=== PATIENT | female | born 2000 | race Hispanic/Latino ===

== ENCOUNTER 2021-11-29 04:39 | Emergency (ER) | payer MEDICAID ==
[~2021-11-29] VITALS: Ht 154.9 cm; Wt 62.1 kg
[~2021-11-29 04:39] MED LIST: ESCI10TA PO; IBUP-2070 PO; NORE-122 PO; NORT10CA2 PO
[2021-11-29 05:20] LABS: BASOPHILS % (AUTO) 0.3 % (0.0-5.0); EOSINOPHILS % (AUTO) 0.3 % (0.0-8.0); HEMATOCRIT 41.5 % (36-48); LYMPHOCYTES % (AUTO) 17.4 % (21.0-51.0); MEAN CORPUSCULAR HEMOGLOBIN 29.6 pg (27.0-33.0); MEAN CORPUSCULAR VOLUME 87.2 fL (80-100); MONOCYTES % (AUTO) 6.5 % (3.0-13.0); PLATELET COUNT (AUTO) 243 K/uL (130-400); RED BLOOD CELL COUNT(AUTO) 4.76 MIL/uL (4.00-5.50); RED CELL DISTRIBUTION WIDTH 12.9 % (11.0-15.5); WHITE BLOOD COUNT (AUTO) 8.6 K/uL (4.8-10.8)
[2021-11-29 05:27] LABS: CREATININE 0.7 mg/dL (0.5-1.5); POTASSIUM 3.5 mmol/L (3.5-5.1)
[2021-11-29] MEDS ORDERED: ONDANSETRON 4MG INJ ONE (05:28)
[2021-11-29] MEDS ORDERED: ONDANSETRON 4MG INJ IVP ONE (05:30)
[2021-11-29] MEDS ORDERED: KETOROLAC 30MG VIAL (30MG/ML) IVP ONE (05:30)
[2021-11-29 05:38] LABS: ALBUMIN 3.5 g/dL (3.5-5.0); BILIRUBIN,TOTAL 0.5 mg/dL (0.2-1.0); TOTAL PROTEIN, SERUM 6.8 g/dL (6.0-8.3)
[2021-11-29 06:00] LABS: APPEARANCE,URINE Clear (CLEAR); BILIRUBIN,URINE Negative (NEGATIVE); COLOR,URINE Yellow (YELLOW); GLUCOSE, URINE (UA) Negative (NEGATIVE); KETONES,URINE Trace mg/dL (NEGATIVE); LEUKOCYTE ESTERASE ,URINE Negative (NEGATIVE); NITRATE,URINE Negative (NEGATIVE); OCCULT BLOOD,URINE Negative (NEGATIVE); PROTEIN,URINE Trace mg/dL (NEGATIVE)
[2021-11-29] MEDS ORDERED: MORPHINE 4 MG SYG ONE (06:11)
[2021-11-29 06:15] LABS: RBC,URINE 0-1 /HPF (0-1)
[2021-11-29 06:16] LABS: BACTERIA,URINE None Seen /HPF (None Seen); CALCIUM OXALATE CRYSTALS,UR Moderate /LPF (None Seen); MUCUS,URINE Few LPF (None Seen); SQUAMOUS EPITHELIAL CELL,UR Few /HPF (0-2)
[2021-11-29 06:17] LABS: AMORPHOUS SEDIMENT,UR Few /LPF (None Seen)
[2021-11-29] MEDS: MORPHINE 4 MG SYG IVP SCH ×3 (06:19→09:41)
[2021-11-29] MEDS ORDERED: 0.9%NACL 1000ML 1,000 ML IV ONE (06:29)
[2021-11-29] MEDS: 0.9%NACL 1000ML 1,000 ML IV SCH ×2 (06:45→09:40)
[2021-11-29] MEDS ORDERED: ACETAMINOPHEN 500 MG TABLET ONE (09:48)
[2021-11-29 09:54] VITALS: BP 108/65
[2021-11-29] MEDS ORDERED: OXAP600T4 PO (09:57)
[2021-11-29] MEDS ORDERED: NAPR500T6 PO (20:59)
[2021-11-29] MEDS ORDERED: TRAM50TA2 PO (20:59)
== END 2021-11-29 10:15 | disposition home or self-care (01) ==
LOC: EDH 04:39
DX: N83.201 Unspecified ovarian cyst, right side (principal); G89.29 Other chronic pain; Z88.6 Allergy status to analgesic agent; Z79.899 Other long term (current) drug therapy; Z90.89 Acquired absence of other organs; Z90.49 Acquired absence of other specified parts of digestive tract
CPT/HCPCS: 36415; 76770; 76856; 80053; 81001; 83690; 84702; 85025; 96361; 96374; 96375; 96376; J1885; J2270; J2405; J7030; J7040

== ENCOUNTER → 2023-08-11 | Outpatient (CLI) | payer MEDICAID ==
[~2023-08-11] MED LIST changes: +CEFU500T67 PO; +CEPH500B PO; +NAPR500T6 PO; +TRAM50TA2 PO; +[UNRECOGNIZED DRUG - CODE] PO
[2023-08-11 12:15] LABS: BASOPHILS # (AUTO) 0.03 K/uL (0.00-0.20); BASOPHILS % (AUTO) 0.4 % (0.0-5.0); EOSINOPHILS # (AUTO) 0.05 K/uL (0.00-0.70); EOSINOPHILS % (AUTO) 0.6 % (0.0-8.0); HEMATOCRIT 34.1 % (36-48); IMMATURE GRANULOCYTE ABSOLUTE 0.04 K/uL (0-1); LYMPHOCYTES # (AUTO) 1.9 K/uL (1.0-4.8); LYMPHOCYTES % (AUTO) 23.6 % (21.0-51.0); MEAN CORPUSCULAR HEMOGLOBIN 30.5 pg (27.0-33.0); MEAN CORPUSCULAR HGB CONC 34.3 g/dL (32.0-36.0); MONOCYTES # (AUTO) 0.4 K/uL (0.1-1.0); NEUTROPHILS # (AUTO) 5.6 K/uL (1.8-7.7); NEUTROPHILS % (AUTO) 69.9 % (40.0-77.0); PLATELET COUNT (AUTO) 200 K/uL (130-400); RED BLOOD CELL COUNT(AUTO) 3.83 MIL/uL (4.00-5.50)
[2023-08-11 12:37] LABS: BILIRUBIN,TOTAL 0.3 mg/dL (0.2-1.0); CREATININE 0.4 mg/dL (0.5-1.5); MAGNESIUM 1.6 mg/dL (1.80-2.40); POTASSIUM 3.4 mmol/L (3.5-5.1); T4 (THYROXINE) 8.1 ug/dL (4.7-13.3); THYROID STIMULATING HORMONE 1.84 uIU/mL (0.36-3.74); TOTAL PROTEIN, SERUM 6.3 g/dL (6.0-8.3)
[2023-08-11 12:38] LABS: HEMOGLOBIN A1C 4.6 % (4.0-6.0)
== END | disposition home or self-care (01) ==
LOC: LAB 10:43
PROVIDERS: ATTEND Student in an Organized Health Care Education/Training Program
DX: R00.2 Palpitations (principal)
CPT/HCPCS: 36415; 80053; 82652; 83036; 83735; 84436; 84443; 84479; 85025

== ENCOUNTER 2023-08-18 05:08 | Emergency (ER) | payer MEDICAID ==
[~2023-08-18] VITALS: Ht 154.9 cm; Wt 68.5 kg
[2023-08-18 05:34] LABS: APPEARANCE,URINE CLEAR (CLEAR); BILIRUBIN,URINE NEGATIVE (NEGATIVE); COLOR,URINE LIGHT-YELLOW (YELLOW); GLUCOSE, URINE (UA) NEGATIVE (NEGATIVE); KETONES,URINE NEGATIVE (NEGATIVE); LEUKOCYTE ESTERASE ,URINE NEGATIVE Leu/uL (NEGATIVE); NITRATE,URINE NEGATIVE (NEGATIVE); OCCULT BLOOD,URINE MODERATE (NEGATIVE); PROTEIN,URINE NEGATIVE (NEGATIVE); UROBILINOGEN,URINE 0.2 mg/dL (0.2-1.0)
[2023-08-18 05:37] LABS: ADD UA MICROSCOPIC YES
[2023-08-18 05:38] LABS: MUCUS,URINE RARE LPF (None Seen); RBC,URINE 51-100 /HPF (0-1); SQUAMOUS EPITHELIAL CELL,UR MOD /HPF (0-2)
[2023-08-18] MEDS ORDERED: MORPHINE 2 MG SYG IVP ONE (06:00)
[2023-08-18 07:54] LABS: BASOPHILS # (AUTO) 0.04 K/uL (0.00-0.20); BASOPHILS % (AUTO) 0.5 % (0.0-5.0); EOSINOPHILS # (AUTO) 0.07 K/uL (0.00-0.70); EOSINOPHILS % (AUTO) 0.8 % (0.0-8.0); HEMATOCRIT 31.7 % (36-48); IMMATURE GRANULOCYTE ABSOLUTE 0.06 K/uL (0-1); LYMPHOCYTES # (AUTO) 2.3 K/uL (1.0-4.8); LYMPHOCYTES % (AUTO) 27.6 % (21.0-51.0); MEAN CORPUSCULAR HGB CONC 35.6 g/dL (32.0-36.0); MEAN CORPUSCULAR VOLUME 86.8 fL (79-99); MONOCYTES # (AUTO) 0.5 K/uL (0.1-1.0); MONOCYTES % (AUTO) 5.4 % (3.0-13.0); NEUTROPHILS # (AUTO) 5.4 K/uL (1.8-7.7); PLATELET COUNT (AUTO) 197 K/uL (130-400); RED BLOOD CELL COUNT(AUTO) 3.65 MIL/uL (4.00-5.50); RED CELL DISTRIBUTION WIDTH 13.8 % (11.0-15.5); WHITE BLOOD COUNT (AUTO) 8.3 K/uL (4.8-10.8)
[2023-08-18 08:18] LABS: ALBUMIN 2.7 g/dL (3.5-5.0); BILIRUBIN,TOTAL 0.3 mg/dL (0.2-1.0); CREATININE 0.4 mg/dL (0.5-1.5); POTASSIUM 3.5 mmol/L (3.5-5.1); TOTAL PROTEIN, SERUM 6.2 g/dL (6.0-8.3)
[2023-08-18 09:33] VITALS: BP 100/59; PULSE 80; RESP 16; O2SAT 98
[2023-08-18] MEDS ORDERED: ONDA4TAB10 PO (09:34)
[2023-08-18] MEDS ORDERED: ACETAMINOPHEN 325 MG TAB ONE (09:56)
== END 2023-08-18 09:56 | disposition home or self-care (01) ==
LOC: EDH 05:08
DX: O26.892 Other specified pregnancy related conditions, second trimester (principal); R10.9 Unspecified abdominal pain; R31.9 Hematuria, unspecified; Z3A.18 18 weeks gestation of pregnancy; Z90.49 Acquired absence of other specified parts of digestive tract
CPT/HCPCS: 99285; 96374; 76770; 76805; 80053; 85025; 81001; 36415; 93005; J2270

== ENCOUNTER 2023-10-09 16:10 | Observation (INO) | payer MEDICAID ==
[~2023-10-09] VITALS: Ht 154.9 cm; Wt 71.7 kg
[~2023-10-09 16:10] MED LIST changes: +ONDA4TAB10 PO
[2023-10-09 16:44] VITALS: BP 128/80; PULSE 74; RESP 16
[2023-10-09 18:23] LABS: BASOPHILS # (AUTO) 0.03 K/uL (0.00-0.20); BASOPHILS % (AUTO) 0.3 % (0.0-5.0); EOSINOPHILS # (AUTO) 0.08 K/uL (0.00-0.70); EOSINOPHILS % (AUTO) 0.8 % (0.0-8.0); HEMATOCRIT 33.2 % (36-48); IMMATURE GRANULOCYTE ABSOLUTE 0.07 K/uL (0-1); LYMPHOCYTES # (AUTO) 2.2 K/uL (1.0-4.8); LYMPHOCYTES % (AUTO) 21.3 % (21.0-51.0); MEAN CORPUSCULAR HEMOGLOBIN 30.9 pg (27.0-33.0); MEAN CORPUSCULAR HGB CONC 34.9 g/dL (32.0-36.0); MEAN CORPUSCULAR VOLUME 88.3 fL (79-99); MONOCYTES # (AUTO) 0.6 K/uL (0.1-1.0); MONOCYTES % (AUTO) 5.7 % (3.0-13.0); NEUTROPHILS # (AUTO) 7.4 K/uL (1.8-7.7); NEUTROPHILS % (AUTO) 71.2 % (40.0-77.0); PLATELET COUNT (AUTO) 177 K/uL (130-400); RED BLOOD CELL COUNT(AUTO) 3.76 MIL/uL (4.00-5.50); RED CELL DISTRIBUTION WIDTH 13.8 % (11.0-15.5); WHITE BLOOD COUNT (AUTO) 10.4 K/uL (4.8-10.8)
[2023-10-09 18:38] LABS: CREATININE 0.5 mg/dL (0.5-1.5); POTASSIUM 3.3 mmol/L (3.5-5.1)
[2023-10-09 18:49] LABS: ALBUMIN 2.7 g/dL (3.5-5.0); BILIRUBIN,TOTAL 0.2 mg/dL (0.2-1.0); TOTAL PROTEIN, SERUM 6.1 g/dL (6.0-8.3)
[2023-10-09 19:32] LABS: APPEARANCE,URINE CLEAR (CLEAR); BILIRUBIN,URINE NEGATIVE (NEGATIVE); COLOR,URINE LIGHT-YELLOW (YELLOW); GLUCOSE, URINE (UA) NEGATIVE (NEGATIVE); KETONES,URINE 60 mg/dL (NEGATIVE); LEUKOCYTE ESTERASE ,URINE 75 Leu/uL (NEGATIVE); NITRATE,URINE NEGATIVE (NEGATIVE); OCCULT BLOOD,URINE NEGATIVE (NEGATIVE); PROTEIN,URINE NEGATIVE (NEGATIVE); UROBILINOGEN,URINE 0.2 mg/dL (0.2-1.0)
[2023-10-09 19:33] LABS: ADD UA MICROSCOPIC YES
[2023-10-09 19:36] LABS: BACTERIA,URINE RARE /HPF (None Seen); MUCUS,URINE RARE LPF (None Seen); SQUAMOUS EPITHELIAL CELL,UR FEW /HPF (0-2)
== END 2023-10-09 20:21 | disposition home or self-care (01) ==
LOC: EDH 16:10 → LDH 16:11 → UNDOADMOB 16:11
PROVIDERS: ADMIT Obstetrics & Gynecology; ATTEND Obstetrics & Gynecology
DX: O26.892 Other specified pregnancy related conditions, second trimester (principal); R42 Dizziness and giddiness; R11.0 Nausea; Z3A.26 26 weeks gestation of pregnancy
CPT/HCPCS: 99284; 84484; 80053; 85025; 87088; 81001; 36415; 93005; G0378

== ENCOUNTER 2023-10-19 15:55 | Observation (INO) | payer MEDICAID ==
[~2023-10-19] VITALS: Ht 154.9 cm; Wt 74.1 kg
[2023-10-19 16:55] LABS: HEMATOCRIT 32.4 % (36-48); MEAN CORPUSCULAR HEMOGLOBIN 30.5 pg (27.0-33.0); MEAN CORPUSCULAR HGB CONC 34.9 g/dL (32.0-36.0); MEAN CORPUSCULAR VOLUME 87.3 fL (79-99); RED BLOOD CELL COUNT(AUTO) 3.71 MIL/uL (4.00-5.50); RED CELL DISTRIBUTION WIDTH 13.2 % (11.0-15.5); WHITE BLOOD COUNT (AUTO) 10.4 K/uL (4.8-10.8)
[2023-10-19 17:05] LABS: CREATININE 0.5 mg/dL (0.5-1.5); MAGNESIUM 1.4 mg/dL (1.80-2.40); POTASSIUM 3.3 mmol/L (3.5-5.1)
[2023-10-19 17:36] LABS: APPEARANCE,URINE CLEAR (CLEAR); BILIRUBIN,URINE NEGATIVE (NEGATIVE); COLOR,URINE LIGHT-YELLOW (YELLOW); GLUCOSE, URINE (UA) NEGATIVE (NEGATIVE); KETONES,URINE NEGATIVE (NEGATIVE); LEUKOCYTE ESTERASE ,URINE NEGATIVE Leu/uL (NEGATIVE); NITRATE,URINE NEGATIVE (NEGATIVE); OCCULT BLOOD,URINE MODERATE (NEGATIVE); PH,URINE 6.5 (5.0-8.0); PROTEIN,URINE NEGATIVE (NEGATIVE); UROBILINOGEN,URINE 0.2 mg/dL (0.2-1.0)
[2023-10-19 17:39] LABS: ADD UA MICROSCOPIC YES
[2023-10-19 17:41] LABS: BACTERIA,URINE RARE /HPF (None Seen); MUCUS,URINE RARE LPF (None Seen); RBC,URINE >100 /HPF (0-1); SQUAMOUS EPITHELIAL CELL,UR RARE /HPF (0-2)
[2023-10-19 17:43] LABS: AMPHET/METH SCREEN,URINE NEGATIVE (NEGATIVE); BARBITURATE SCREEN, URINE NEGATIVE (NEGATIVE); BENZODIAZEPINES SCREEN,URINE NEGATIVE (NEGATIVE); CANNABINOID SCREEN,URINE NEGATIVE (NEGATIVE); COCAINE SCREEN,URINE NEGATIVE (NEGATIVE); OPIATE SCREEN,URINE NEGATIVE (NEGATIVE); PHENCYCLIDINE SCREEN,URINE NEGATIVE (NEGATIVE)
[2023-10-19 18:08] LABS: ALCOHOL, BLOOD < 3 mg/dL (0-10); THYROID STIMULATING HORMONE 1.29 uIU/mL (0.36-3.74)
[2023-10-19] MEDS: ACETAMINOPHEN 325 MG TAB PO PRN (20:38)
[2023-10-19 21:59] LABS: CREATINE KINASE, TOTAL 53 U/L (21-232)
[2023-10-19] MEDS: METOPROLOL TARTRATE 25 MG TAB PO SCH (22:02)
[2023-10-19 22:12] LABS: ALBUMIN 2.6 g/dL (3.5-5.0); BILIRUBIN,DIRECT 0.1 mg/dL (0.0-0.3); BILIRUBIN,TOTAL 0.3 mg/dL (0.2-1.0); TOTAL PROTEIN, SERUM 5.8 g/dL (6.0-8.3)
[2023-10-19] MEDS: 0.9%NACL 1000ML 1,000 ML IV ONE (22:25)
[2023-10-19] MEDS: MAGNESIUM OXIDE 400 MG TABLET PO ONE ×2 (22:25→22:26)
[2023-10-19] MEDS: POTASSIUM BICARB/CIT AC 25 MEQ TABLET.EFF PO ONE (22:25)
[2023-10-19] MEDS ORDERED: ONDANSETRON 4MG INJ IVP PRN (22:30)
[2023-10-19 22:35] VITALS: O2SAT 99
[2023-10-19 23:00] VITALS: BP_SYST 115; BP_SYST 119; BP_SYST 128; BP_DIAS 69; BP_DIAS 83; BP_DIAS 86; PULSE 111; PULSE 120; PULSE 91; RESP 19
[2023-10-19 23:11] LABS: INR <= 0.93 (0.85-1.15); PROTHROMBIN TIME 10.6 SEC (9.6-11.6)
[2023-10-19 23:12] LABS: PARTIAL THROMBOPLASTIN TIME 28.2 SEC (26.3-35.5)
[2023-10-19] MEDS ORDERED: METO25TA6 PO (23:41)
[2023-10-19] MEDS ORDERED: PNV#1CAP15 PO (23:41)
[2023-10-20] VITALS (7 sets, daily range): BP systolic 95–182; BP diastolic 39–87; PULSE 65–79; RESP 16–20; O2SAT 99–100
[2023-10-20] MEDS: 0.9%NACL 1000ML 1,000 ML IV SCH (05:26)
[2023-10-20 05:27] LABS: BASOPHILS # (AUTO) 0.05 K/uL (0.00-0.20); BASOPHILS % (AUTO) 0.5 % (0.0-5.0); EOSINOPHILS # (AUTO) 0.11 K/uL (0.00-0.70); EOSINOPHILS % (AUTO) 1.2 % (0.0-8.0); HEMATOCRIT 29.7 % (36-48); IMMATURE GRANULOCYTE ABSOLUTE 0.06 K/uL (0-1); LYMPHOCYTES # (AUTO) 3.5 K/uL (1.0-4.8); LYMPHOCYTES % (AUTO) 36.9 % (21.0-51.0); MEAN CORPUSCULAR HEMOGLOBIN 30.1 pg (27.0-33.0); MEAN CORPUSCULAR HGB CONC 35.4 g/dL (32.0-36.0); MEAN CORPUSCULAR VOLUME 85.1 fL (79-99); MONOCYTES # (AUTO) 0.6 K/uL (0.1-1.0); MONOCYTES % (AUTO) 6.4 % (3.0-13.0); NEUTROPHILS # (AUTO) 5.1 K/uL (1.8-7.7); NEUTROPHILS % (AUTO) 54.4 % (40.0-77.0); PLATELET COUNT (AUTO) 167 K/uL (130-400); RED BLOOD CELL COUNT(AUTO) 3.49 MIL/uL (4.00-5.50); RED CELL DISTRIBUTION WIDTH 13.2 % (11.0-15.5); WHITE BLOOD COUNT (AUTO) 9.4 K/uL (4.8-10.8)
[2023-10-20 05:59] LABS: ALBUMIN 2.3 g/dL (3.5-5.0); BILIRUBIN,TOTAL 0.2 mg/dL (0.2-1.0); CREATININE 0.3 mg/dL (0.5-1.5); MAGNESIUM 1.6 mg/dL (1.80-2.40); POTASSIUM 3.3 mmol/L (3.5-5.1); TOTAL PROTEIN, SERUM 5.4 g/dL (6.0-8.3)
[2023-10-20] MEDS ORDERED: PRENATAL VITAMIN RX TABLET PO SCH (09:00)
[2023-10-20] MEDS: MAGNESIUM OXIDE 400 MG TABLET PO SCH (11:39)
[2023-10-20] MEDS ORDERED: POTASSIUM CHLORIDE 20MEQ/100ML 100 ML IV PRN (12:30)
[2023-10-20] MEDS: PROPRANOLOL HCL 10 MG TAB PO SCH (13:50)
[2023-10-20] MEDS: KCL 20 MEQ ERTAB PO ONE ×3 (13:51→23:45)
[2023-10-20] MEDS: MAGNESIUM 2GM PREMIX 50ML 50 ML IV PRN (14:10)
[2023-10-20] MEDS: PRENATAL VITAMIN RX TABLET PO SCH (21:00)
[2023-10-21 04:00] VITALS: BP 107/49; PULSE 72; RESP 17
[2023-10-21] MEDS ORDERED: POTASSIUM CHLORIDE 10% ELIXIR 20 MEQ/15 ML UDCUP PO PRN (04:30)
[2023-10-21 05:09] LABS: BASOPHILS # (AUTO) 0.05 K/uL (0.00-0.20); BASOPHILS % (AUTO) 0.5 % (0.0-5.0); EOSINOPHILS # (AUTO) 0.12 K/uL (0.00-0.70); EOSINOPHILS % (AUTO) 1.3 % (0.0-8.0); HEMATOCRIT 29.9 % (36-48); IMMATURE GRANULOCYTE ABSOLUTE 0.05 K/uL (0-1); LYMPHOCYTES # (AUTO) 3.1 K/uL (1.0-4.8); LYMPHOCYTES % (AUTO) 34.5 % (21.0-51.0); MEAN CORPUSCULAR HEMOGLOBIN 30.5 pg (27.0-33.0); MEAN CORPUSCULAR HGB CONC 34.4 g/dL (32.0-36.0); MEAN CORPUSCULAR VOLUME 88.5 fL (79-99); MONOCYTES # (AUTO) 0.6 K/uL (0.1-1.0); MONOCYTES % (AUTO) 6.8 % (3.0-13.0); NEUTROPHILS # (AUTO) 5.1 K/uL (1.8-7.7); NEUTROPHILS % (AUTO) 56.4 % (40.0-77.0); PLATELET COUNT (AUTO) 150 K/uL (130-400); RED BLOOD CELL COUNT(AUTO) 3.38 MIL/uL (4.00-5.50); RED CELL DISTRIBUTION WIDTH 13.3 % (11.0-15.5); WHITE BLOOD COUNT (AUTO) 9.1 K/uL (4.8-10.8)
[2023-10-21 05:30] LABS: ALBUMIN 2.2 g/dL (3.5-5.0); BILIRUBIN,TOTAL 0.1 mg/dL (0.2-1.0); CREATININE 0.4 mg/dL (0.5-1.5); MAGNESIUM 1.7 mg/dL (1.80-2.40); TOTAL PROTEIN, SERUM 5.2 g/dL (6.0-8.3)
[2023-10-21 08:00] VITALS: BP 113/61; PULSE 71; RESP 18
[2023-10-21] MEDS ORDERED: PROP80CA2 PO (10:05)
[2023-10-21 12:00] VITALS: BP 104/61; PULSE 87; RESP 18
[2023-10-21 16:00] VITALS: BP 105/55; PULSE 82; RESP 18
[2023-10-21 17:38] VITALS: O2SAT 100
== END 2023-10-21 18:50 | disposition home or self-care (01) ==
LOC: EDH 15:55 → EDHIP 15:56 → 3CH 22:19
PROVIDERS: ADMIT Obstetrics & Gynecology; ATTEND Obstetrics & Gynecology
DX: O99.352 Diseases of the nervous system complicating pregnancy, second trimester (principal); O99.282 Endocrine, nutritional and metabolic diseases complicating pregnancy, second trimester; O99.412 Diseases of the circulatory system complicating pregnancy, second trimester; O99.322 Drug use complicating pregnancy, second trimester; O26.892 Other specified pregnancy related conditions, second trimester; R00.2 Palpitations; E83.42 Hypomagnesemia; E87.6 Hypokalemia; G43.909 Migraine, unspecified, not intractable, without status migrainosus; R42 Dizziness and giddiness; I49.3 Ventricular premature depolarization; F19.90 Other psychoactive substance use, unspecified, uncomplicated; Z3A.27 27 weeks gestation of pregnancy; Z79.899 Other long term (current) drug therapy; Z90.49 Acquired absence of other specified parts of digestive tract
CPT/HCPCS: 96361 ×2; 99284; 84443; 82550; 84156; 82570; 80076; 83735 ×4; 84484 ×2; 80048; 83880; 80305; 85027; 85610; 85730; 84439; 84481; 81001; 36415 ×3; 76805; 93005; 96365; 96366 ×2; 80053 ×2; 85025 ×2; 82533; G0378 ×48; J7030; J3475 ×2

== ENCOUNTER 2023-12-12 01:27 | Observation (INO) | payer MEDICAID ==
[~2023-12-12] VITALS: Ht 154.9 cm; Wt 75.3 kg
[2023-12-12 01:29] VITALS: BP 138/81; PULSE 70; RESP 18
[2023-12-12 02:02] LABS: APPEARANCE,URINE CLEAR (CLEAR); BILIRUBIN,URINE NEGATIVE (NEGATIVE); COLOR,URINE LIGHT-YELLOW (YELLOW); GLUCOSE, URINE (UA) NEGATIVE (NEGATIVE); KETONES,URINE NEGATIVE (NEGATIVE); LEUKOCYTE ESTERASE ,URINE NEGATIVE Leu/uL (NEGATIVE); NITRATE,URINE NEGATIVE (NEGATIVE); OCCULT BLOOD,URINE NEGATIVE (NEGATIVE); PROTEIN,URINE NEGATIVE (NEGATIVE); UROBILINOGEN,URINE 0.2 mg/dL (0.2-1.0)
[2023-12-12 02:03] LABS: ADD UA MICROSCOPIC NO
== END 2023-12-12 05:55 | disposition home or self-care (01) ==
LOC: EDH 01:27 → LDH 01:28
PROVIDERS: ADMIT Obstetrics & Gynecology; ATTEND Obstetrics & Gynecology
DX: O26.893 Other specified pregnancy related conditions, third trimester (principal); M79.89 Other specified soft tissue disorders; R10.9 Unspecified abdominal pain; M79.604 Pain in right leg; Z3A.35 35 weeks gestation of pregnancy
CPT/HCPCS: 84156; 82570; 83615; 83735; 84550; 80053; 85025; 85384; 85610; 85730; 81003; 36415; 93971; G0378 ×4; G0379

== ENCOUNTER → 2023-12-12 | Outpatient (CLI) | payer MEDICAID ==
[~2023-12-12] MED LIST changes: -CEFU500T67 PO; -CEPH500B PO; -ESCI10TA PO; -IBUP-2070 PO; -NAPR500T6 PO; -NORE-122 PO; -NORT10CA2 PO; +PNV#1CAP15 PO; +PROP80CA2 PO; -TRAM50TA2 PO; -[UNRECOGNIZED DRUG - CODE] PO
[2023-12-12 12:10] LABS: BASOPHILS # (AUTO) 0.02 K/uL (0.00-0.20); BASOPHILS % (AUTO) 0.2 % (0.0-5.0); EOSINOPHILS # (AUTO) 0.07 K/uL (0.00-0.70); EOSINOPHILS % (AUTO) 0.8 % (0.0-8.0); HEMATOCRIT 31.2 % (36-48); LYMPHOCYTES # (AUTO) 1.7 K/uL (1.0-4.8); LYMPHOCYTES % (AUTO) 20.1 % (21.0-51.0); MEAN CORPUSCULAR HEMOGLOBIN 29.4 pg (27.0-33.0); MEAN CORPUSCULAR HGB CONC 34.6 g/dL (32.0-36.0); MONOCYTES # (AUTO) 0.8 K/uL (0.1-1.0); MONOCYTES % (AUTO) 9.4 % (3.0-13.0); NEUTROPHILS # (AUTO) 5.7 K/uL (1.8-7.7); NEUTROPHILS % (AUTO) 68.3 % (40.0-77.0); PLATELET COUNT (AUTO) 146 K/uL (130-400); RED BLOOD CELL COUNT(AUTO) 3.67 MIL/uL (4.00-5.50); RED CELL DISTRIBUTION WIDTH 14.4 % (11.0-15.5); WHITE BLOOD COUNT (AUTO) 8.3 K/uL (4.8-10.8)
[2023-12-12 12:23] LABS: ALBUMIN 2.5 g/dL (3.5-5.0); BILIRUBIN,TOTAL 0.3 mg/dL (0.2-1.0); CREATININE 0.5 mg/dL (0.5-1.0); MAGNESIUM 1.4 mg/dL (1.80-2.40); URIC ACID 3.8 mg/dL (2.6-7.2)
[2023-12-12 12:49] LABS: FIBRINOGEN 381 mg/dL (180-350); INR <= 0.93 (0.85-1.15); PROTHROMBIN TIME 10.5 SEC (9.6-11.6)
[2023-12-12 12:51] LABS: PARTIAL THROMBOPLASTIN TIME 28.6 SEC (26.3-35.5)
== END | disposition home or self-care (01) ==
LOC: LAB 10:56
PROVIDERS: ATTEND Student in an Organized Health Care Education/Training Program
DX: R00.2 Palpitations (principal); I49.3 Ventricular premature depolarization; R51.9 Headache, unspecified; R60.0 Localized edema
CPT/HCPCS: 36415; 80053; 82570; 83615; 83735; 84156; 84550; 85025; 85384; 85610; 85730

== ENCOUNTER → 2023-12-25 | Outpatient (CLI) | payer MEDICAID ==
[2023-12-25 16:53] LABS: CREATININE 0.5 mg/dL (0.5-1.0); POTASSIUM 3.7 mmol/L (3.5-5.1)
== END | disposition home or self-care (01) ==
LOC: LAB 12:08
PROVIDERS: ATTEND Student in an Organized Health Care Education/Training Program
DX: I49.3 Ventricular premature depolarization (principal); R00.2 Palpitations
CPT/HCPCS: 36415; 80048

== ENCOUNTER → 2024-01-26 | Outpatient (CLI) | payer MEDICAID ==
[~2024-01-26] MED LIST changes: +ONDA-243 PO; -ONDA4TAB10 PO
[2024-01-26 12:19] LABS: BASOPHILS # (AUTO) 0.09 K/uL (0.00-0.20); BASOPHILS % (AUTO) 1.4 % (0.0-5.0); EOSINOPHILS # (AUTO) 0.27 K/uL (0.00-0.70); EOSINOPHILS % (AUTO) 4.3 % (0.0-8.0); HEMATOCRIT 40.6 % (36-48); IMMATURE GRANULOCYTE ABSOLUTE 0.01 K/uL (0-1); LYMPHOCYTES # (AUTO) 2.6 K/uL (1.0-4.8); LYMPHOCYTES % (AUTO) 40.9 % (21.0-51.0); MEAN CORPUSCULAR HEMOGLOBIN 28.3 pg (27.0-33.0); MEAN CORPUSCULAR VOLUME 88.5 fL (79-99); MONOCYTES # (AUTO) 0.4 K/uL (0.1-1.0); MONOCYTES % (AUTO) 5.7 % (3.0-13.0); NEUTROPHILS % (AUTO) 47.5 % (40.0-77.0); PLATELET COUNT (AUTO) 335 K/uL (130-400); RED BLOOD CELL COUNT(AUTO) 4.59 MIL/uL (4.00-5.50); WHITE BLOOD COUNT (AUTO) 6.3 K/uL (4.8-10.8)
[2024-01-26 12:43] LABS: ALBUMIN 3.7 g/dL (3.5-5.0); BILIRUBIN,TOTAL 0.5 mg/dL (0.2-1.0); CREATININE 0.8 mg/dL (0.5-1.0); MAGNESIUM 2.2 mg/dL (1.80-2.40); POTASSIUM 4.3 mmol/L (3.5-5.1); THYROID STIMULATING HORMONE 1.6 uIU/mL (0.36-3.74); TOTAL PROTEIN, SERUM 7.6 g/dL (6.0-8.3)
[2024-01-26 13:01] LABS: T4 (THYROXINE) 8.5 ug/dL (4.7-13.3)
== END | disposition home or self-care (01) ==
LOC: LAB 10:55
PROVIDERS: ATTEND Student in an Organized Health Care Education/Training Program
DX: I34.0 Nonrheumatic mitral (valve) insufficiency (principal); R94.31 Abnormal electrocardiogram [ECG] [EKG]; R00.2 Palpitations; I49.3 Ventricular premature depolarization; R51.9 Headache, unspecified; R60.9 Edema, unspecified
CPT/HCPCS: 36415; 80053; 82306; 83735; 84436; 84443; 84479; 85025; 93306

== ENCOUNTER → 2024-11-08 | Outpatient (CLI) | payer MEDICAID ==
[2024-11-08 15:18] LABS: BASOPHILS # (AUTO) 0.07 K/uL (0.00-0.20); BASOPHILS % (AUTO) 0.9 % (0.0-5.0); EOSINOPHILS # (AUTO) 0.08 K/uL (0.00-0.70); EOSINOPHILS % (AUTO) 1.1 % (0.0-8.0); HEMATOCRIT 43.4 % (36-48); IMMATURE GRANULOCYTE ABSOLUTE 0.03 K/uL (0-1); LYMPHOCYTES # (AUTO) 2.6 K/uL (1.0-4.8); LYMPHOCYTES % (AUTO) 35.3 % (21.0-51.0); MEAN CORPUSCULAR HEMOGLOBIN 29.9 pg (27.0-33.0); MEAN CORPUSCULAR HGB CONC 33.6 g/dL (32.0-36.0); MEAN CORPUSCULAR VOLUME 88.9 fL (79-99); MONOCYTES # (AUTO) 0.5 K/uL (0.1-1.0); MONOCYTES % (AUTO) 6.3 % (3.0-13.0); NEUTROPHILS # (AUTO) 4.2 K/uL (1.8-7.7); PLATELET COUNT (AUTO) 278 K/uL (130-400); RED BLOOD CELL COUNT(AUTO) 4.88 MIL/uL (4.00-5.50); RED CELL DISTRIBUTION WIDTH 13.5 % (11.0-15.5); WHITE BLOOD COUNT (AUTO) 7.5 K/uL (4.8-10.8)
[2024-11-08 15:51] LABS: ALBUMIN 3.8 g/dL (3.5-5.0); BILIRUBIN,TOTAL 0.3 mg/dL (0.2-1.0); CREATININE 0.5 mg/dL (0.5-1.0); MAGNESIUM 1.9 mg/dL (1.80-2.40); POTASSIUM 3.7 mmol/L (3.5-5.1); THYROID STIMULATING HORMONE 1.64 uIU/mL (0.36-3.74); TOTAL PROTEIN, SERUM 7.4 g/dL (6.0-8.3)
[2024-11-08 16:04] LABS: HEMOGLOBIN A1C 4.9 % (4.0-6.0)
== END | disposition home or self-care (01) ==
LOC: LAB 11:51
PROVIDERS: ATTEND Student in an Organized Health Care Education/Training Program
DX: R00.2 Palpitations (principal)
CPT/HCPCS: 36415; 80053; 83036; 83735; 84443; 85025

== ENCOUNTER 2025-02-01 23:52 | Emergency (ER) | payer OTHER, MEDICAID ==
[~2025-02-01] VITALS: Ht 154.9 cm; Wt 68.0 kg
[2025-02-02] MEDS: ketOROlac 30MG VIAL (30MG/ML) IM ONE (01:10)
[2025-02-02] MEDS: ORPHENADRINE 60MG/2ML IM ONE (01:10)
[2025-02-02] MEDS ORDERED: GABA-529 PO (01:19)
--- NOTE | 2025-02-02 01:20 | ERN ---
General Chief Complaint: Hip Pain/Injury Stated Complaint: LEFT HIP PAIN Time Seen by MD: 23:57 Time Seen by Midlevel: 23:57 Source: patient History of Present Illness Initial Comments Patient is a 24-year-old female with no significant past medical history presenting to the emergency department for evaluation of left lower back pain that radiates down to her left leg and into her left thigh. She denies any injury to the area. No other symptoms reported Allergies: Coded Allergies: ketorolac (Verified Allergy, Unknown, 11/29/21) NO ALLERGY TO TORADOL trazodone (Verified Allergy, Unknown, 04/21/16) Home Meds Active Scripts Gabapentin (Gabapentin) 100 Mg Capsule, 1 CAP PO BID for 5 Days, #10 CAP 0 Refills Prov:HELIO JASON 02/02/25 Propranolol HCl (Propranolol HCl) 80 Mg Cap.sa.24h, 80 MG PO DAILY PRN for 1/2 tablet daily, #30 TAB 3 Refills Prov:ERMELINDA MONTILLA MD 10/21/23 Ondansetron (Ondansetron Odt) 4 Mg Tab.rapdis, 4 MG PO TID PRN for NAUSEA, #30 TAB 0 Refills Prov:NIRMALA PUGH MD 08/18/23 Reported Medications Pnv#67/Iron Ps/FA Cmb#1/Dha (Vitafol Ultra Softgel) 29 Mg Iron-1 Mg-200 Mg Capsule, 1 EACH PO DAILYDINNER, CAP 10/19/23 Past Medical History Past Medical History: Other Medical History Other: HEART MURMUR Past Surgical History: Appendectomy, Cholecystectomy Surgical History Other: OVARIAN CYST REMOVED Family History Family History: Negative Social History Social History: Negative Female( History) LMP: January 17, 2025 : 2 Para: 0 Aborts: 1 ROS Dictation CONSTITUTIONAL: Negative except for HPI HEAD/FACE: Negative except for HPI EENT: Negative except for HPI RESPIRATORY: Negative except for HPI GASTROINTESTINAL/ABDOMINAL: Negative except for HPI GENITOURINARY: Negative except for HPI MUSCULOSKELETAL: Negative except for HPI INTEGUMENTARY: Negative except for HPI NEUROLOGICAL/PSYCH: Negative except for HPI HEMATOLOGIC/LYMPHATIC: Negative except for HPI All Systems Negative, Except as noted above. 13 point review of systems assessed and all negative except for above. Physical Exam Physical Exam Dictation Vital Signs reviewed General Appearance: Alert, oriented x 3, no acute distress, well developed, nourished. Head and Face: non-traumatic. Eyes: PERRL, pink conjunctivas, eyelid no trauma, anterior chamber with arcus senilis. Ears: Pinnas intact and no signs of trauma or erythema ear canals clear and no discharge TM no erythema Nose: No discharge, no bleeding. Oropharynx: Mouth normal, tongue pink, pharynx clear,no erythema, tonsils no exudates, no abscesses noted, mucous membrane moist Neck: Supple, non-tender, no thyromegaly, no masses, no JVD, no bruits Breast:Deferred Chest:No tenderness, no crepitus, no paradoxical movement, no retractions Lungs:Clear, well-ventilated, symmetric, no rales, no wheezing, no rhonchi, no stridor, good breath sounds bilaterally Heart: Regular rate, regular rhythm, no murmur, no gallops Vascular: no peripheral edema, Abdomen: Soft, positive bowel sounds, nondistended, no guarding, nontender, no rebound, no masses no hepatomegaly, no splenomegaly, no Toribio's sign, no hernias. Rectal: Deferred Genital: Deferred Neurological: Normal speech, motor function intact, sensory function intact Musculoskeletal: Neck nontender, full range of motion, back nontender, full range of motion, Extremities: nontender, full range of motion Skin: Color pink, dry, no turgor, no rash, no lacerations, no abrasions, no contusions. Lymphatic: Deferred MDM MDM: Differential diagnosis: Sciatica, muscle strain, contusion, neuropathic pain There are no social concerns with this patient. Prescription drug management Prescriptions will include: Gabapentin Medical management and examination interpretation discussions were had by me with other qualified healthcare professionals as indicated for the patient's care. ED Course Orders Procedure Category Date Status Time Orphenadrine Citrate PHA 02/02/25 Complete (Norflex) 01:00 Ketorolac PHA 02/02/25 Complete Tromethamine 30mg/Ml 01:00 Current Medications Medications (Trade) Dose Ordered Sig/Royce Route PRN Reason Start Time Stop Time Status Last Admin Dose Admin Ketorolac Tromethamine (toRADol) 30 mg ONCE ONCE IM 02/02/25 01:00 02/02/25 01:01 DC 02/02/25 01:10 Orphenadrine Citrate (Norflex) 60 mg ONCE ONCE IM 02/02/25 01:00 02/02/25 01:01 DC 02/02/25 01:10 Vital Signs Date Time Temp Pulse Resp B/P (MAP) Pulse Ox O2 Delivery O2 Flow Rate FiO2 02/01/25 23:53 98.8 84 18 129/86 98 Room Air 0 DX & DISP Disposition: Discharge Departure Impression: Primary Impression: Sciatica Condition: Stable Scripts Gabapentin (Gabapentin) 100 Mg Capsule 1 CAP PO BID for 5 Days, #10 CAP 0 Refills Prov: HELIO JASON 02/02/25 Referrals: SELF,REFERRAL (PCP) Time of Disposition: 01:19 I have reviewed the case, and I agree with, Diagnosis and Plan I performed the substantive portion of the visit. I have reviewed and personally made and approve the management plan that is documented in the note by myself or the MARY. I acknowledge for responsibility for the patient's management plan. HELIO JASON Feb 02, 2025 01:19
[2025-02-02 01:23] VITALS: BP 124/83; PULSE 85; RESP 18; TEMP 98.5; O2SAT 99
== END 2025-02-02 01:24 | disposition home or self-care (01) ==
LOC: EDH 23:52
DX: M54.32 Sciatica, left side (principal); Z79.899 Other long term (current) drug therapy; Z90.49 Acquired absence of other specified parts of digestive tract
CPT/HCPCS: 99284; 82948; 96372 ×2; J1885; J2360